=== PATIENT | female | born 2000 | race Caucasian/White ===

== ENCOUNTER 2024-03-20 15:40 | Emergency (ER) | payer OTHER, SELFPAY ==
--- NOTE | 2024-03-20 15:43 | ED.DENTAL ---
HPI - Dental/Oral General Chief complaint: Dental/Oral Stated complaint: Dental Pain Time Seen by Provider: 03/20/24 15:43 Source: patient Mode of arrival: ambulatory Limitations: no limitations History of Present Illness HPI Narrative: Angelito is a 23-year-old female patient presenting to the clinic today with complaints of dental pain times. She reports she has had dental abscesses off and on for the past 3 months and been placed on amoxicillin for this. Does have a dentist appointment tomorrow at [facility]. States that she was unable to get into her recent dentist because they have changed locations. She denies any fever or chills. Related Data Home Medications Medication Instructions Recorded Confirmed bupropion HCl 1 tab-cap PO DIRECTED 03/20/24 03/20/24 metformin 1 tab-cap PO DIRECTED 03/20/24 03/20/24 Allergies Allergy/AdvReac Type Severity Reaction Status Date / Time No Known Allergies Allergy Verified 03/20/24 15:57 Review of Systems Review of Systems: Pertinent positives per HPI. Patient denies any fever, chills, rash, headache, visual changes, dizziness, cough, shortness of breath, chest pain, palpitations, nausea, vomiting, diarrhea, constipation, abdominal pain, or any urinary issues. [facility] Comments At the time of my signature, I reviewed and agree with the nursing past medical, surgical, social, and family history. There is no relevant family history pertinent to the patient complaint. Exam Narrative: General: Well-developed, morbidly obese, in no apparent distress Head: Normocephalic, atraumatic Eyes: Pupils equally round and reactive to light bilaterally, EOM intact, sclera and conjunctive clear, no discharge, lids normal Ears: TMs intact and clear, ear canals clear, no drainage, grossly hearing normal. Nose: Nares patent, no discharge, no inflammation, no sinus tenderness. Mouth: Oral pharynx without lesions or masses, very poor dentition, MMM. Dental abscess to the right lower canine tooth-tongue blade was used to express pus from the abscess Neck: Supple, trachea midline, no enlargement of anterior or posterior cervical nodes, no thyroid masses or goiter palpable. Cardio: Regular rate and rhythm, s1 and s2 normal, no murmur appreciated. Resp: Clear to auscultation bilaterally, no rhonchi, rales, wheezing or rubs Course Course Emergency Course: Portions of this record may have been created with voice recognition software. Level of Care: Express Care Visit Vital Signs Vital signs: Vital signs reviewed MDM - Dental/Oral MDM Narrative Medical decision making narrative: At the time of visit patient is resting comfortably on the exam table. Patient appears to be nontoxic. Supportive measures were discussed with the patient and they voiced understanding discharge instructions and agrees to treatment plan. Return precautions reviewed Differential Diagnosis Differential diagnosis: Likely gingival abscess, dental caries, toothache, dental abscess, fracture of tooth and aphthous ulcer Discharge Plan Discharge Clinical Impression: Abscess, dental Patient Disposition: Home, Self-Care Condition: Stable Instructions: Antibiotic Form, Dental Abscess (ED) Additional Instructions: Abscess drained in the clinic today. Increase fluids and stay well hydrated Swish with salt water or mouthwash May take Tylenol/Motrin as needed for pain Take clindamycin as prescribed Follow-up with your dentist as soon as possible Prescriptions: New clindamycin HCl 300 mg capsule 300 mg PO Q8H 10 Days Qty: 30 0RF No Action No Home Medications Follow-up/Referrals: UNKNOWN,DOCTOR [Non-Staff] - Time of Disposition: 15:57 Quality NIHSS Nursing Documentation ED NIHSS nursing documentation: reviewed/agree
[2024-03-20 15:53] VITALS: BP 115/68; PULSE 66; RESP 16; TEMP 36.8; O2SAT 100
== END 2024-03-20 16:00 | disposition home or self-care (01) ==
PROVIDERS: Emergency Provider Nurse Practitioner Family
DX: K04.7 Periapical abscess without sinus (principal); F32.A Depression, unspecified
CPT/HCPCS: 99203; G0463

== ENCOUNTER 2025-10-27 13:30 | Emergency (ER) | payer OTHER, SELFPAY ==
[2025-10-27 13:40] VITALS: BP 118/71; PULSE 77; RESP 18; TEMP 37; O2SAT 99
--- NOTE | 2025-10-27 13:47 | ED.DENTAL ---
HPI - Dental/Oral General Chief complaint: Dental/Oral Stated complaint: tooth pain Time Seen by Provider: 10/27/25 13:47 Source: patient, RN notes reviewed and old records reviewed Mode of arrival: ambulatory Limitations: no limitations History of Present Illness HPI Narrative: 25 year old female presents to [facility] care with complaints of 2 day history of pain to #17 tooth with swelling and redness of gum and white patch of tissue around tooth with patient having left facial swelling and painful opening of her mouth. Patient reports that she has been taking Tylenol and Ibuprofen for pain with minimal pain relief. Patient reports that she does not have dentist. Patient reports no difficulty with swallowing or with her breathing, no jaw swelling or any evidence of Tino angina noted. MD Complaint: tooth pain Location: Tooth # (17) Onset (ago): day(s) (2) Severity scale (1-10): 8 Treatment prior to arrival: oral analgesic (tylenol and Ibuprofen) Related Data Allergies Allergy/AdvReac Type Severity Reaction Status Date / Time No Known Allergies Allergy Verified 10/27/25 13:47 Review of Systems Review of Systems: CONSTITUTIONAL: Denies fever, chills, or sweats. ENT: Denies rhinorrhea, congestion, sore throat, or otalgia. Reports dental pain to the left most posterior tooth#17 with redness swelling of gum and white tissue around tooth left facial swelling CARDIOVASCULAR: Denies chest pain, palpitations, or edema. RESPIRATORY: Denies cough or dyspnea. SKIN: Denies rash or itching. MUSCULOSKELETAL: Denies myalgia. NEUROLOGIC: Denies headache All systems reviewed & are unremarkable except as noted in HPI and below PMFSH Past Medical History Medical History (Updated 10/28/25 @ 12:33 by Jennifer Abdul APRN) Depression Social History Social History (Updated 10/28/25 @ 12:33 by Jennifer Abdul APRN) Smoking status: Current every day smoker Tobacco type: cigarettes Alcohol intake: current Alcohol use details: social Substance use type: does not use Living arrangements: with family Gender identity (if verbalized by the patient): Female Comments At time of signature, agree with nursing past medical, surgical, social and family history. There is no relevant family history pertinent to the presenting complaint Exam Narrative: GENERAL: Well-appearing, well-nourished, and in no acute distress. HEAD: Normocephalic, atraumatic. EYES: PERRLA and EOMI. ENT: Nares clear, no rhinorrhea or epistaxis. Mucous membranes moist.Swelling noted to #17 tooth with gum redness and swelling and white tissue around tooth and gum with left facial swelling, states some difficulty fully opening mouth no Tino angina or swelling under jaw patient is able to control own secretions, with no difficulty swallowing or with breathing. NECK: Supple no lymphadenopathy CHEST: Clear to auscultation. No respiratory distress. no dyspnea or cough noted SAO2 99% on room air HEART: Regular rate and rhythm. No murmur heard. Normal peripheral pulses. SKIN: Warm, dry, no rash. NEURO: No focal deficits. Alert and oriented x3. Course Course Level of Care: Express Care Visit Vital Signs Vital signs: Vital Signs Temperature 37.0 C 10/27/25 13:40 Pulse Rate 77 10/27/25 13:40 Respiratory Rate 18 10/27/25 13:40 Blood Pressure 118/71 10/27/25 13:40 Pulse Oximetry 99 10/27/25 13:40 Oxygen Delivery Room Air 10/27/25 13:40 Temperature 37.0 C 10/27/25 13:40 Pulse Rate 77 10/27/25 13:40 Respiratory Rate 18 10/27/25 13:40 Blood Pressure 118/71 10/27/25 13:40 Pulse Oximetry 99 10/27/25 13:40 Oxygen Delivery Room Air 10/27/25 13:40 reviewed MDM MDM Narrative Medical decision making narrative: 25 year old female with complaints of left facial swelling and impaction and abscess of left bottom wisdom tooth with pain for the past 2 days. Patient appears to be nontoxic. Supportive measures were discussed with the patient and they voiced understanding discharge instructions and agrees to treatment plan. Return precautions reviewed and when to seek ED services reviewed. Differential Diagnosis Differential Diagnosis: Differential diagnostic considerations for dental issues include gingival abscess, dental caries, toothache, dental abscess, fracture of tooth, aphthous ulcer, TMJ. Critical Care Time Critical Care Time Critical Care Time: No Discharge Plan Discharge Clinical Impression: Dental abscess, Impacted tooth Patient Disposition: Home Condition: Stable Instructions: Antibiotic Form, Dental Abscess (ED) Additional Instructions: Avoid temperature extremes May apply heat or ice to the face Gentle brushing and flossing Antibiotic as directed Tylenol for lesser pain Use ibuprofen regularly Lidocaine to tooth and gum region #17 Follow-up with the dentist as soon as possible--see the list provided If your symptoms persist, change or worsen significantly before you can contact your personal physician then please, without delay, go to the emergency department for further evaluation. Follow-up with PCP in 7-10 days or sooner if needed monitor for any fevers Patient Language: Bahraini Prescriptions: New penicillin V potassium 500 mg tablet 500 mg PO Q12H Qty: 20 0RF lidocaine HCl [Lidocaine Viscous] 2 % solution 1 applic mucous membrane QID PRN (Reason: pain) Qty: 100 0RF Rx Instructions: apply with cotton tip applicator Follow-up/Referrals: David,Crystal [Other] Stand Alone Forms: Work/School Release IP Time of Disposition: 14:03 Quality [place] Coma Scale Eyes: Open Verbal: Oriented and Alert Motor: Follows Commands Brenda Coma Total Score: 15
== END 2025-10-27 14:10 | disposition home or self-care (01) ==
PROVIDERS: Emergency Provider Registered Nurse
DX: K04.7 Periapical abscess without sinus (principal); K01.1 Impacted teeth; F17.210 Nicotine dependence, cigarettes, uncomplicated
CPT/HCPCS: 99213; G0463